=== PATIENT | female | born 1955 | race Caucasian/White ===

== ENCOUNTER 2023-09-23 10:22 | Outpatient (CLI) | payer MEDICARE, OTHER, SELFPAY ==
--- NOTE | 2023-09-23 10:30 | ECG_ITS ---
Measurements Intervals [place] Rate: 82 P: 69 TX: 197 QRS: 6 QRSD: 84 T: 21 QT: 346 QTc: 406 Interpretive Statements SINUS RHYTHM LOW QRS VOLTAGE IN PRECORDIAL LEADS [QRS DEFLECTION < 1.0 mV IN CHEST LEADS] ANTEROSEPTAL MYOCARDIAL INFARCTION [40+ ms Q WAVE IN V1-V4], PROBABLY OLD WARNING: DATA QUALITY MAY AFFECT INTERPRETATION NO PREVIOUS ECG AVAILABLE FOR COMPARISON Electronically Signed On 09-23-2023 16:38:19 FRUIT SPRAYER by Liane Malave M.D.
[2023-09-23 11:02] LABS: Anion Gap 11 mmol/L (8-16); Blood Urea Nitrogen 18 mg/dL (7-17); Calcium 9.5 mg/dL (8.4-10.2); Carbon Dioxide 25 mmol/L (22-30); Chloride 102 mmol/L (98-107); Estimated Glomerular Filt Rate > 60; Glucose 100 mg/dL (65-110); Potassium 4.3 mmol/L (3.4-5.0); Sodium 138 mmol/L (137-145)
== END 2023-09-23 10:23 | disposition home or self-care (01) ==
LOC: ANHSURGERY 10:29
PROVIDERS: Anesthesiology; PCP Family Medicine; Visit Provider Obstetrics & Gynecology
DX: Z01.818 Encounter for other preprocedural examination (principal); R93.1 Abnormal findings on diagnostic imaging of heart and coronary circulation; E11.9 Type 2 diabetes mellitus without complications; N81.4 Uterovaginal prolapse, unspecified
CPT/HCPCS: 36415; 80048; 86850; 86900; 86901; 93005

== ENCOUNTER 2023-09-24 00:26 | Day surgery (SDC) | payer MEDICARE, OTHER, SELFPAY ==
[2023-09-18 14:04] VITALS: BMI 24.4
--- NOTE | 2023-09-18 14:22 | PC.NURSE ---
PRE-OP INSTRUCTIONS, PLEASE READ CAREFULLY Report to the Outpatient Waiting Room, entrance under the green pavilion located off [facility], at time _0600_ on date _09/24/23_. Planned Procedure Time: _0730_. PACK A SMALL OVERNIGHT BAG AND LEAVE IN THE CAR Time changes happen often and if your time is changed the preop area will call you the afternoon before. - You and your visitor will be asked to self-screen and do not enter if you have any COVID symptoms. - A mask is optional within the hospital at this time. -VISITING HOURS 8AM-8PM Patients may have clear liquids (water, carbonated beverages, clear teas, apple juice) until 3 hours prior to surgery (0430 AM) with a maximum of 20 ounces. - No food from midnight until time of surgery Take the following medications with a SIP of water the morning of surgery: _BUPROPION_ DO NOT STOP ANY OF YOUR OTHER PRESCRIPTION MEDICATIONS PRIOR TO SURGERY ?EXCEPT THE FOLLOWING Medications to discontinue per DR. SPRINGER - _ASPIRIN - CALL OFFICE FOR INSTRUCTIONS Medications to discontinue per ANESTHESIA - _MULTIVITAMINS, PROBIOTIC AND SUPPLEMENTS 3 DAYS PRIOR TO SURGERY, Date to take last dose 09/20/23_ Please no make-up, nail welsh, hairspray, perfume, deodorant, or body powder the day of surgery. No jewelry (including any body piercings) or valuables the day of surgery, leave them at home. Please take a shower or bath the night before, or the morning of, surgery with an antibacterial soap. Wear comfortable, loose fitting clothing. - Jewelry must be removed prior to entering the operating room. Rings and piercings that are not removed may be cut off. - The hospital will not accept responsibility for valuables. - Please leave all valuables, including medications, at home the day of surgery. If you are going home after surgery, a licensed driver manager must drive you home. - NO public transportation without another adult if you receive anesthesia. - We recommend that an adult stay with you for 24 hours following discharge. - We also recommend that you do not drive, make important decision, drink alcoholic beverages, or take any drugs that were not prescribed by your health care provider for at least 24 hours after your discharge time. Follow any additional instructions given to you from your surgeon. If you or anyone in your household have experienced Covid symptoms in the past week, please notify your surgeon or the nurse liaison at the phone number below for possible testing. Telephone instructions given to _PATIENT_and asked if any additional questions and then verbalized understanding. Patient advised to call surgeon office or pre surgery nurse liaison [phone] if any additional questions.
--- NOTE | 2023-09-23 22:27 | PM.IMHP ---
H&P: HPI History of Present Illness Date/Time: 09/23/23 22:27 Chief Complaint: Bulge Narrative: 68 y/o who noticed a bulge sensation about a month ago. It is especially notable when she sits. She has no vaginal bleeding. She has rare episodes of small volume urinary incontinence. She is interested in surgical management of her problem. Review of Systems Review of Systems: All systems reviewed & are unremarkable except as noted in HPI and below PMFSH Past Medical History Medical History Asthma Chronic hypertension Depression Diabetes mellitus Neuropathy Surgical History Surgical History History of arthroscopic knee surgery History of endometrial ablation History of nasal septoplasty History of rotator cuff surgery History of tubal ligation Social History Social History Years smoked: 4 Smoking status: Former smoker Tobacco type: cigarettes Second hand tobacco smoke exposure: No Additional smoking assessment comments: STATES SMOKED WHILE IN NURSING SCHOOL -QUIT Alcohol intake: never Substance use: never Substance use type: does not use Living arrangements: alone Spiritual care concerns: No Meds Home Medications and Allergies Home Medications Medication Instructions Recorded Confirmed Type Probiotic 1 cap DAILY 09/18/23 09/18/23 History aspirin 81 mg capsule 81 mg PO DAILY 09/18/23 09/18/23 History bupropion HCl 300 mg 24 hr tablet, 300 mg PO QAM 09/18/23 09/18/23 History extended release calcium carbonate 500 mg-vitamin 1 tablet PO DAILY 09/18/23 09/18/23 History D3 3.125 mcg (125 unit) tablet cholecalciferol (vitamin D3) 50 50 mcg PO DAILY 09/18/23 09/18/23 History mcg (2,000 unit) capsule losartan 50 mg tablet 50 mg QAM 09/18/23 09/18/23 History magnesium 200 mg tablet 400 mg PO DAILY 09/18/23 09/18/23 History metformin 500 mg tablet,extended 1,000 mg PO BID 09/18/23 09/18/23 History release 24 hr metoprolol succinate 25 mg 25 mg PO HS 09/18/23 09/18/23 History tablet,extended release 24 hr multivitamin 1 tablet PO DAILY 09/18/23 09/18/23 History omega 4-qje-uvo-fish oil 1,200 mg 2 cap PO DAILY 09/18/23 09/18/23 History (144 mg-216 mg) capsule (Fish Oil) pregabalin 25 mg capsule 75 mg HS 09/18/23 09/18/23 History semaglutide 7 mg tablet (Rybelsus) 7 mg PO QAM 09/18/23 09/18/23 History Allergies Allergy/AdvReac Type Severity Reaction Status Date / Time lisinopril AdvReac Cough Verified 09/18/23 13:56 Xbzvtns-EIE-AiE Reductase AdvReac LEG CRAMPS Verified 09/18/23 13:56 Inhibitor Exam Const: Orientation/consciousness: patient oriented x3 Other: Well-developed, well-nourished female in no acute distress. Neck: Thyroid: thyroid normal Lymphatic: no lymphadenopathy noted (in neck, axilla or inguinal nodes) Resp: Effort & Inspection: normal respiratory effort Auscultation: clear to auscultation bilaterally Cardio: Rate: regular rate Rhythm: regular rhythm Heart sounds: S1 normal heart sound present and S2 normal heart sound present GI: Other: ABD: Soft, nontender, nondistended. No guarding or rebound tenderness. No hepatosplenomegaly. : General: Yes no CVA tenderness Other: External genitalia: normal female hair distribution, without lesion. Urethral meatus: no lesion, non prolapsed. Bladder: no mass, nontender Vagina: atrophic. There is a distal cystocele which bulges just to the vaginal introitus. There is a first degree uterine prolapse. There is a first degree rectocele, only noted on digital rectal exam. Cervix: no lesion or discharge. Uterus: small, anteverted, freely mobile, nontender Adnexa: no mass or tenderness. Anus/perineum: no lesions, nontender Back/Spine/Pelvis: Back: no CVA tenderness Skin: General skin exam: normal
[2023-09-24] VITALS (13 sets, daily range): BP systolic 137–171; BP diastolic 76–93; PULSE 72–96; RESP 10–20; TEMP 36.1–36.8; O2SAT 95–100
--- NOTE | 2023-09-24 06:39 | WPDANESEPPF ---
Anes - Initial Pre Proc Eval Procedure: Operation Date: 09/24/23 07:30 Proposed Procedures p Total Vaginal Hysterectomy, Possible Bilateral Salpingo Oophorectomy With Anterior Repair - Reno Meehan MD Date/Time: 09/24/23 06:39 Surgeon: Reno Meehan MD Pre Op Diagnosis: uterine prolapse,cystocele Patient Data Age: 68 Gender: F Height: 1.88 m Weight: 85.9 kg Last Vital Signs Temp 36.2 C L 09/24/23 06:07 Pulse 84 09/24/23 06:07 Resp 18 09/24/23 06:07 BP 146/86 H 09/24/23 06:07 Pulse Ox 100 09/24/23 06:07 O2 Del Method Room Air 09/24/23 06:07 Allergies Allergy/AdvReac Type Severity Reaction Status Date / Time lisinopril AdvReac Cough Verified 09/18/23 13:56 Otroums-QFJ-UpE Reductase AdvReac LEG CRAMPS Verified 09/18/23 13:56 Inhibitor Home Medications Medication Instructions Recorded Confirmed Type Probiotic 1 cap DAILY 09/18/23 09/18/23 History aspirin 81 mg capsule 81 mg PO DAILY 09/18/23 09/18/23 History bupropion HCl 300 mg 24 hr tablet, 300 mg PO QAM 09/18/23 09/18/23 History extended release calcium carbonate 500 mg-vitamin 1 tablet PO DAILY 09/18/23 09/18/23 History D3 3.125 mcg (125 unit) tablet cholecalciferol (vitamin D3) 50 50 mcg PO DAILY 09/18/23 09/18/23 History mcg (2,000 unit) capsule losartan 50 mg tablet 50 mg QAM 09/18/23 09/18/23 History magnesium 200 mg tablet 400 mg PO DAILY 09/18/23 09/18/23 History metformin 500 mg tablet,extended 1,000 mg PO BID 09/18/23 09/18/23 History release 24 hr metoprolol succinate 25 mg 25 mg PO HS 09/18/23 09/18/23 History tablet,extended release 24 hr multivitamin 1 tablet PO DAILY 09/18/23 09/18/23 History omega 8-szy-hdc-fish oil 1,200 mg 2 cap PO DAILY 09/18/23 09/18/23 History (144 mg-216 mg) capsule (Fish Oil) pregabalin 25 mg capsule 75 mg HS 09/18/23 09/18/23 History semaglutide 7 mg tablet (Rybelsus) 7 mg PO QAM 09/18/23 09/18/23 History Patient hx anesthesia problems: none Family hx anesthesia problems: none Results Review: All pre-operative results and documents have been reviewed as part of the pre-operative evaluation. [facility] Past Medical History Medical History Asthma Chronic hypertension Depression Diabetes mellitus Neuropathy Surgical History Surgical History History of arthroscopic knee surgery History of endometrial ablation History of nasal septoplasty History of rotator cuff surgery History of tubal ligation Social History Social History Years smoked: 4 Smoking status: Former smoker Tobacco type: cigarettes Second hand tobacco smoke exposure: No Additional smoking assessment comments: STATES SMOKED WHILE IN NURSING SCHOOL -QUIT Alcohol intake: never Substance use: never Substance use type: does not use Living arrangements: alone Spiritual care concerns: No Anes - Eval Final PreProcedure Day of Procedure 09/24/23 06:39 Patient weight: normal Heart: regular rate and rhythm Lungs: clear to auscultation Airway: Mallampati scale class II Neurological: alert and oriented Last oral intake: >/= 8 hours ASA classification: III Emergent: no Anesthetic plan: proceed Anesthesia type and monitoring: general ETT and standard monitoring Results Review: All pre-operative results and documents have been reviewed as part of the pre-operative evaluation. Informed Consent: The patient's anesthetic plan and its attendant risks and benefits were discussed with the patient/family/POA. Questions were solicited and answers provided to the satisfaction of the patient/family/POA.
[2023-09-24] MEDS: LACTATED RINGERS 1,000 ML 30 ML IV CONT ×2 (06:45→09:15)
[2023-09-24] MEDS: KETOROLAC 15 MG/ML VIAL (*BKC) IV PUSH (06:47)
[2023-09-24] MEDS: ACETAMINOPHEN 500 MG TABLET 1000 MG PO (06:47)
[2023-09-24 06:53] LABS: Glucose Point of Care 63 mg/dl (65-105)
[2023-09-24] MEDS: DEXTROSE 50% 25 GM/50 ML SYRINGE IV PUSH (07:32)
--- NOTE | 2023-09-24 07:44 | WPDHPUPDATE1 ---
History and Physical Update Update Date/Time: 09/24/23 07:44 History and Physical has been reviewed, including an updated exam of the patient. There are NO changes in the patient's condition. Risks, benefits, and alternatives have been discussed and questions answered. Patient agrees to proceed with procedure.
[2023-09-24] MEDS: ceFAZolin 2 GM/D5W 50 ML 2 GM/50 ML BAG IVPB (07:45)
[2023-09-24 08:22] LABS: Glucose Point of Care 98 mg/dl (65-105)
--- NOTE | 2023-09-24 09:07 | P.OP_ITS ---
Procedure Note - Detailed Date of Procedure 09/24/23 Pre-op Diagnosis Pelvic organ prolapse Post-op Diagnosis Same Procedure Performed Total vaginal hysterectomy Anterior colporrhaphy Surgeon Reno Meehan MD Anesthesia General Findings Distal cystocele bulging just to the introitus. First degree uterine prolapse. Uterus, tubes and ovaries otherwise unremarkable. Description of Procedure The patient was taken to the operating room where she was prepared and draped in the usual sterile fashion in the dorsal lithotomy position. The bladder was drained with red rubber catheter. A weighted speculum was placed posteriorly. A Anup retractor was used anteriorly. The cervix was grasped with a single- tooth tenaculum. Ten mL of sterile saline was infiltrated circumferentially around the cervix to aid in tissue plane dissection. The cervix was circums cribed using electrocautery. The peritoneal cavity was entered sharply posteriorly and a long weighted speculum was placed. The uterosacral and cardinal ligaments on both sides were then clamped, transected and suture ligated using 0 Vicryl. These were tagged for later identification. The bladder was dissected off the cervix and lower uterine segment and reflected away. The LigaSure device was then used to clamp, ligate and transect the broad ligaments bilaterally. Finally, the utero-ovarian ligament, round ligament and tube complexes on both sides were able to be clamped, transected and suture ligated using 0 Vicryl. The specimen was passed off to be sent to pathology. The bilateral fallopian tubes and ovaries were difficult to reach, but were normal-appearing. These were left in situ. The pedicles were inspected and found to be hemostatic. The vaginal cuff angles were then transfixed to the ipsilateral cardinal uterosacral ligaments for support. The vaginal cuff was reapproximated using 0 Vicryl in a running, locked fashion. Attention was then directed to the vaginal epithelium underlying the cystocele. This was elevated with Allis clamps and the epithelium infiltrated with another 10 mL of sterile saline. An incision was made longitudinally and lateral dissection performed. The fascia was then reapproximated using interrupted figure of eight sutures of 2-0 Vicryl. Excess vaginal epithelial tissue was excised and discarded. The vaginal epithelium was then reapproximated using figure of eight sutures of 2-0 Vicryl. Hemostasis was excellent. A Espinal catheter was placed and return of clear urine noted. Vaginal packing soaked in Premarin cream was placed. Sponge, lap, needle and instrument counts were correct. The patient was awakened and taken to the recovery room in stable condition. I was present and scrubbed for the entire procedure. Implants None Estimated Blood Loss 50 Drains Yes (espinal) Packing Yes (vaginal) Pathology Yes (Uterus and cervix sent to pathology) Complications None Condition Stable Disposition PACU
[2023-09-24 09:30] LABS: Glucose Point of Care 120 mg/dl (65-105)
[2023-09-24] MEDS: fentaNYL CITRATE INJ (*CRX) 100 MCG/2 ML VIAL 25 MCG IV PUSH ×4 (09:49→10:19)
[2023-09-24] MEDS: ONDANSETRON INJ 4 MG/2 ML VIAL IV PUSH (10:20)
--- NOTE | 2023-09-24 11:00 | PC.NURSE ---
This patient, Li Lyon, was received from PACU via bed on 09/24/23 at 1100. Patient/family oriented to unit policies and routines.
[2023-09-24] MEDS: DEXTROSE 5%/0.45% SOD CHL 1,000 ML 125 ML IV CONT (11:35)
[2023-09-24] MEDS: PROMETHAZINE HCL 25 MG/ML AMPUL 12.5 MG IV PUSH (11:35)
[2023-09-24 12:55] LABS: Glucose Point of Care 147 mg/dl (65-105)
[2023-09-24] MEDS: HYDROcodone/acetaminophen (*CRX) 10-325 MG TABLET 1 TAB PO ×2 (16:39→21:20)
[2023-09-24] MEDS: SIMETHICONE 80 MG TAB.CHEW PO (16:40)
[2023-09-24] MEDS: IBUPROFEN 600 MG TABLET PO (16:40)
[2023-09-24] MEDS: metFORMIN HCL XR 500 MG TAB.SR.24H 1000 MG PO (16:40)
[2023-09-24] MEDS: ENOXAPARIN 40 MG/0.4 ML SYRINGE SUB-Q (16:41)
[2023-09-24 17:31] LABS: Glucose Point of Care 108 mg/dl (65-105)
--- NOTE | 2023-09-24 19:00 | PC.NURSE ---
PT introductions made and plan of care discussed per post op manpower development manager surgery, pain management, daily care activities. PT sole recipient of such instructions and no barriers to learning identified at this time. PT received such instructions per one to one discussion and demonstrations this shift. PT verbalized understanding of such care.
[2023-09-24 19:33] LABS: Glucose Point of Care 120 mg/dl (65-105)
[2023-09-24] MEDS: PREGABALIN (*CRX) 25 MG CAPSULE 75 MG PO (21:21)
[2023-09-24] MEDS: METOPROLOL SUCCINATE EXT REL 25 MG TABCR PO (21:21)
[2023-09-25 00:44] VITALS: BP 127/64; PULSE 93; RESP 16; TEMP 36.9; O2SAT 100
[2023-09-25] MEDS: IBUPROFEN 600 MG TABLET PO ×2 (00:44→08:47)
[2023-09-25] MEDS: HYDROcodone/acetaminophen (*CRX) 10-325 MG TABLET 1 TAB PO ×2 (00:44→05:00)
[2023-09-25 05:20] VITALS: BP 132/81; PULSE 82; RESP 16; TEMP 36.6; O2SAT 100
[2023-09-25] MEDS: ONDANSETRON INJ 4 MG/2 ML VIAL IV PUSH (05:40)
[2023-09-25 05:42] LABS: Basophils Absolute Auto 0.1 K/mm3 (0.0-0.1); Basophils Percent Auto 0.4 % (0.2-1.2); Eosinophils Absolute Auto 0.1 K/mm3 (0-0.3); Hematocrit 36.1 % (37.0-47.0); Hemoglobin 11.5 g/dL (12.0-15.0); Immature Granulocyte Absolute 0.03 K/mm3 (0.00-0.031); Immature Granulocyte Percent A 0.2 % (0-0.5); Lymphocytes Percent Auto 24.7 % (18.3-44.2); Mean Corpuscular HGB Conc 31.9 g/dl (32-36); Mean Corpuscular Hemoglobin 30.3 pg (26-34); Mean Corpuscular Volume 95.3 fl (80-100); Mean Platelet Volume 9.1 fl (7.4-10.4); Monocytes Percent Auto 8.1 % (2.6-8.5); Neutrophils Absolute Auto 8.2 K/mm3 (1.3-6.7); Neutrophils Percent Auto 65.6 % (45.5-73.1); Platelet Count Result 256 k/mm3 (150-375); Red Blood Count 3.79 M/mm3 (4.2-5.4); Red Cell Distribution Width 12.8 % (11.5-14.5); White Blood Count 12.6 K/mm3 (4.5-10.0)
[2023-09-25 05:42] LABS: Glucose Point of Care 119 mg/dl (65-105)
[2023-09-25 07:58] VITALS: BP 101/64; PULSE 88; RESP 16; TEMP 36.4; O2SAT 99
[2023-09-25] MEDS: buPROPion HCL XL (24 HR) 150 MG TABCR 300 MG PO (08:42)
[2023-09-25] MEDS: metFORMIN HCL XR 500 MG TAB.SR.24H 1000 MG PO (08:42)
[2023-09-25] MEDS: SIMETHICONE 80 MG TAB.CHEW PO (08:43)
[2023-09-25] MEDS: LOSARTAN POTASSIUM 50 MG TABLET PO (08:43)
[2023-09-25 08:46] LABS: Glucose Point of Care 143 mg/dl (65-105)
--- NOTE | 2023-09-25 09:00 | PM.GYNPNOP ---
PURCHASING ADMINISTRATOR - A/P Assessment and plan (1) Pelvic prolapse: Code(s): N81.9 - Female genital prolapse, unspecified Status: Acute Assessment and Plan: A: POD#1, s/p TVH with anterior colporrhaphy, doing well. P: Home to f/u 2-3 weeks. Postoperative Procedures: Procedures Operation Date: 09/24/23 07:30 Actual Procedure Side Surgeon p Total Vaginal Hysterectomy With Anterior Repair Reno Meehan MD Time Spent With Patient Time: Total time spent is greater than 50% in coordination of care (as documented) at patient's floor/unit and/or counseling patient: Time with patient: less than 15 minutes PURCHASING ADMINISTRATOR- PN:Subj Post-Op Subjective Date/time seen: 09/25/23 09:00 Interval history: Pain OK. Burns out. Packing out. Tolerating diet. Voiding. Would like to go home. Exam Narrative: AVSS I/O OK ABD soft, nontender. EXT nontender PURCHASING ADMINISTRATOR - PN: Obj Data Vital Signs Vital Signs: Vital Signs - 24 hr 09/24/23 09:15 09/24/23 09:30 09/24/23 09:45 Temperature 36.3 C L Pulse Rate 80 81 86 Respiratory Rate 12 10 L 18 Blood Pressure 154/79 H 153/81 H 169/93 H Pulse Oximetry 99 99 98 Oxygen Delivery Simple Face Mask Simple Face Mask Room Air Oxygen Flow Rate 8 8 09/24/23 10:00 09/24/23 10:15 09/24/23 10:30 Temperature Pulse Rate 76 78 72 Respiratory Rate 14 16 12 Blood Pressure 158/81 H 157/82 H 147/92 H Pulse Oximetry 97 98 98 Oxygen Delivery Room Air Room Air Room Air Oxygen Flow Rate 09/24/23 10:45 09/24/23 11:05 09/24/23 12:30 Temperature 36.1 C L Pulse Rate 73 76 83 Respiratory Rate 14 18 20 Blood Pressure 147/80 H 170/84 H 137/76 Pulse Oximetry 95 99 97 Oxygen Delivery Room Air Oxygen Flow Rate 09/24/23 16:25 09/24/23 21:21 09/24/23 19:20 Temperature 36.4 C L 36.8 C Pulse Rate 93 96 96 Respiratory Rate 20 18 Blood Pressure 171/79 H 157/76 H Pulse Oximetry 100 98 Oxygen Delivery Oxygen Flow Rate 09/24/23 19:20 09/25/23 00:44 09/25/23 00:44 Temperature 36.9 C Pulse Rate 96 93 Respiratory Rate 18 16 Blood Pressure 127/64 Pulse Oximetry 98 100 Oxygen Delivery Room Air Room Air Oxygen Flow Rate 09/25/23 05:20 09/25/23 07:58 Temperature 36.6 C 36.4 C L Pulse Rate 82 88 Respiratory Rate 16 16 Blood Pressure 132/81 101/64 Pulse Oximetry 100 99 Oxygen Delivery Oxygen Flow Rate Intake/Output Intake/Output: Intake & Output 09/22/23 09/23/23 09/24/23 09/25/23 23:59 23:59 23:59 23:59 Intake Total 2130 500 Output Total 1400 800 Balance 730 -300 Meds/Results Medications: Active Medications Generic Name Dose Route Start Last Admin Trade Name Freq PRN Reason Stop Dose Admin Hydrocodone Bitart/Acetaminophen 1 tab 09/24/23 10:55 Hydrocodone/Acetaminophen (*Crx) 5-325 Mg Tablet PO Q3H PRN Pain Rated 5 or Less Hydrocodone Bitart/Acetaminophen 1 tab 09/24/23 10:55 09/25/23 05:00 Hydrocodone/Acetaminophen (*Crx) 10-325 Mg Tablet PO 1 tab Q3H PRN Administration Pain Rated 6 or Greater Bupropion HCl 300 mg 09/25/23 09:00 09/25/23 08:42 Bupropion Hcl Xl (24 Hr) 150 Mg Tabcr PO 300 mg QAM BERONICA Administration Dextrose/Sodium Chloride 1,000 mls @ 125 mls/hr 09/24/23 10:55 09/25/23 07:02 Dextrose 5% Sodium Chloride 0.45% IV CONT Not Given .Q8H BERONICA Ibuprofen 600 mg 09/24/23 10:55 09/25/23 08:47 Ibuprofen 600 Mg Tablet PO 600 mg Q6H PRN Administration Cramping Ketorolac Tromethamine 30 mg 09/24/23 10:55 Ketorolac 30 Mg/Ml Vial (*Bkc) IV PUSH 09/29/23 10:54 Q6H PRN Pain Rated 4-6 Losartan Potassium 50 mg 09/25/23 09:00 09/25/23 08:43 Losartan Potassium 50 Mg Tablet PO 50 mg QAM BERONICA Administration Metformin HCl 1,000 mg 09/24/23 17:00 09/25/23 08:42 Metformin Hcl Xr 500 Mg Tab.Sr.24h PO 1,000 mg BIDWM BERONICA Administration Metoprolol Succinate 25 mg 09/24/23 21:00 09/24/23 21:21 Metoprolol Succinate
--- NOTE | 2023-09-25 09:01 | PM.DS ---
DS: Admitting Diagnosis Discharge Date 09/25/23 Admitting Diagnosis Pelvic organ prolapse DS: Discharge Diagnosis Discharge Diagnosis (1) Pelvic prolapse: Code(s): N81.9 - Female genital prolapse, unspecified Status: Acute Assessment and Plan: A: POD#1, after TVH and anterior colporrhaphy, doing well. P: Home to f/u 2-3 weeks. DS: Summary Hospital Course Hospital Course: Admitted for scheduled surgery. She did well and was able to go home on POD1. Time Spent with Patient Time attestation: Total time spent providing and/or coordinating discharge services: DS: Data Data Completed and Pending Pending studies at discharge: Pending at discharge 09/24/23 08:13 Surgical [PTH] Routine 09/24/23 09:06 Surgical [PTH] Routine Labs on day of discharge: Labs from last 24 hours 09/25/23 09/25/23 09/25/23 08:41 05:38 05:06 WBC 12.6 H RBC 3.79 L Hgb 11.5 L Hct 36.1 L MCV 95.3 MCH 30.3 MCHC 31.9 L RDW 12.8 Plt Count 256 MPV 9.1 Immature Gran % (Auto) 0.2 Neut % (Auto) 65.6 Lymph % (Auto) 24.7 Love % (Auto) 8.1 Eos % (Auto) 1.0 Baso % (Auto) 0.4 Lymph # (Auto) 3.10 Love # (Auto) 1.0 H Eos # (Auto) 0.1 Baso # (Auto) 0.1 Abs Immat Gran (auto) 0.03 Absolute Neuts (auto) 8.2 H Absolute Nucleated RBC 0.0 Nucleated RBC % 0.0 POC Capillary Glucose 143 H 119 H 09/24/23 09/24/23 09/24/23 19:29 17:26 12:49 WBC RBC Hgb Hct MCV MCH MCHC RDW Plt Count MPV Immature Gran % (Auto) Neut % (Auto) Lymph % (Auto) Love % (Auto) Eos % (Auto) Baso % (Auto) Lymph # (Auto) Love # (Auto) Eos # (Auto) Baso # (Auto) Abs Immat Gran (auto) Absolute Neuts (auto) Absolute Nucleated RBC Nucleated RBC % POC Capillary Glucose 120 H 108 H 147 H 09/24/23 09:27 WBC RBC Hgb Hct MCV MCH MCHC RDW Plt Count MPV Immature Gran % (Auto) Neut % (Auto) Lymph % (Auto) Love % (Auto) Eos % (Auto) Baso % (Auto) Lymph # (Auto) Love # (Auto) Eos # (Auto) Baso # (Auto) Abs Immat Gran (auto) Absolute Neuts (auto) Absolute Nucleated RBC Nucleated RBC % POC Capillary Glucose 120 H Discharge Plan Discharge Attending physician on discharge: Reno Meehan Discharging Clinician: Reno Meehan Patient Disposition: Home, Self-Care Activity: may shower, may drive after 2 weeks and pelvic rest Diet: regular Discharge Instructions: Nothing in the vagina for 6 weeks. Call or return if temperature above 100.4? F, increased abdominal pain, increased vaginal bleeding or any new problems. Stand Alone Forms: General Discharge Instructions Follow-up/Referrals: Reno Meehan MD [Physician] - 3 Weeks Discharge Medications: New hydrocodone-acetaminophen 5-325 mg tablet 1 - 2 tablet PO Q6H PRN (Reason: pain) Qty: 30 0RF Continued multivitamin Tablet 1 tablet PO DAILY losartan 50 mg tablet 50 mg QAM metoprolol succinate 25 mg tablet extended release 24 hr 25 mg PO HS metformin 500 mg tablet extended release 24 hr 1,000 mg PO BID magnesium 200 mg Tablet 400 mg PO DAILY bupropion HCl 300 mg tablet extended release 24 hr 300 mg PO QAM pregabalin 25 mg capsule 75 mg HS calcium carbonate-vitamin D3 500 mg-3.125 mcg (125 unit) Tablet 1 tablet PO DAILY cholecalciferol (vitamin D3) 50 mcg (2,000 unit) Capsule 50 mcg PO DAILY omega 4-ndx-qxx-fish oil [Fish Oil] 1,200 (144-216) mg Capsule 2 cap PO DAILY Rybelsus 7 mg tablet 7 mg PO QAM aspirin 81 mg Capsule 81 mg PO DAILY Probiotic 1 cap DAILY Date of admission: 09/24/23 10:55 Primary Care Provider: HallieRyan Admitting Provider: Reno Meehan Attending physician on admission: Reno Meehan Condition: Stable
== END 2023-09-25 08:17 | disposition home or self-care (01) ==
LOC: ANHSURGERY 09:15 → ANHOB2 09-25 09:04
PROVIDERS: PCP Family Medicine; Visit Provider Obstetrics & Gynecology
PROC: (CPT 58260; principal; 2023-09-24 07:30)
DX: N81.2 Incomplete uterovaginal prolapse (principal); D25.1 Intramural leiomyoma of uterus; N88.8 Other specified noninflammatory disorders of cervix uteri; I10 Essential (primary) hypertension; J45.909 Unspecified asthma, uncomplicated; E11.40 Type 2 diabetes mellitus with diabetic neuropathy, unspecified; F32.A Depression, unspecified; Z79.82 Long term (current) use of aspirin; Z79.84 Long term (current) use of oral hypoglycemic drugs
CPT/HCPCS: 57240; 58260; 36415; 82948; 85025; 88307; A9270; J0690; J1170; J1650; J1885; J2250; J2405; J2550; J2704; J3010; J7030; J7120